=== PATIENT | female | born 1955 | race Caucasian/White ===

== ENCOUNTER 2018-11-03 13:49 | Observation (INO) ==
[2018-11-03 14:42] LABS: Basophils # 0.1 10*3/uL (0.0-0.2); Basophils % 0.8 % (0.0-0.8); Eosinophils # 0.4 10*3/uL (0.0-0.87); Eosinophils % 4.9 % (0.00-10.9); Hematocrit 39.8 VOL% (35.7-47.0); Hemoglobin 12.8 GM/DL (12.0-16.0); Immature Granulocytes % 0.4 %; Immature Granulocytes Absolute 0.03 #; Lymphocytes # 1.4 10*3/uL (1.4-4.0); Lymphocytes % 19.1 % (21.3-54.2); Mean Corpuscular HGB Conc 32.2 GM/DL (32-36); Mean Corpuscular Volume 90.7 FL (87-102); Mean Platelet Volume 9.6 FL (9.6-12.0); Monocytes % 8.9 % (1.7-12.7); Neutrophils % 65.9 % (38.7-73.9); Platelet Count 296 T/CUMM (130-400); Red Blood Count 4.39 MC/CUMM (3.8-5.5); Red Cell Distribution Width 12.7 % (9.3-17.3); White Blood Count 7.5 T/CUMM (4-12)
[2018-11-03 14:54] LABS: INR 0.9; PT Patient Result 10.2 SECS; Partial Thromboplastin Time 23.8 SECS (0-40)
[2018-11-03 15:12] LABS: Alanine Aminotransferase 27 U/L (13-56); Albumin 3.6 G/DL (3.4-5.0); Alkaline Phosphatase 97 U/L (45-117); Aspartate Amino Transferase 22 U/L (0-37); Bilirubin,Total < 0.39 MG/DL (0.2-1.0); Blood Urea Nitrogen 19 MG/DL (7-18); Calcium 8.9 MG/DL (8.5-10.1); Glucose 108 MG/DL (74-106); Osmolality,Calculated 283.3 MOS/KG (273-304); Total Protein 7.4 G/DL (6.4-8.3); Troponin I < 0.015 NG/ML (0.00-0.045)
[2018-11-03] MEDS ORDERED: NITROGLYCERIN SL 0.4 MG TABLET SL STA (15:48)
[2018-11-03] MEDS ORDERED: MORPHINE 4 MG/1 ML VIAL IV STA (15:48)
[2018-11-03] MEDS ORDERED: ASPIRIN 325 MG TABLET PO STA (15:48)
[2018-11-03] MEDS ORDERED: ONDANSETRON 4 MG/2 ML VIAL ONE (16:12)
[2018-11-03] MEDS ORDERED: ONDANSETRON 4 MG/2 ML VIAL IV PRN (16:27)
[2018-11-03] MEDS ORDERED: POTASSIUM CHLORIDE 20 MEQ TABLET PO PRN (16:27)
[2018-11-03] MEDS ORDERED: ALUM/MAG/SIMETH/LIDO VISC 1:1 30 ML BOTTLE PO PRN (16:27)
[2018-11-03] MEDS ORDERED: MORPHINE 4 MG/1 ML VIAL IV PRN (16:27)
[2018-11-03] MEDS: SODIUM CHLORIDE 0.45% 1,000 ML IV SCH (18:33)
[2018-11-03] MEDS: ENOXAPARIN 80 MG/0.8 ML SYRINGE SUBCUT SCH (18:34)
[2018-11-03] MEDS: ATORVASTATIN 10 MG TABLET PO SCH (20:47)
[2018-11-04 00:48] LABS: Basophils # 0.1 10*3/uL (0.0-0.2); Basophils % 1.4 % (0.0-0.8); Eosinophils # 0.4 10*3/uL (0.0-0.87); Eosinophils % 6.7 % (0.00-10.9); Hemoglobin 10.9 GM/DL (12.0-16.0); Immature Granulocytes % 0.3 %; Immature Granulocytes Absolute 0.02 #; Lymphocytes # 1.9 10*3/uL (1.4-4.0); Lymphocytes % 32.2 % (21.3-54.2); Mean Corpuscular HGB Conc 32.1 GM/DL (32-36); Mean Corpuscular Volume 92.1 FL (87-102); Mean Platelet Volume 9.8 FL (9.6-12.0); Monocytes % 11.6 % (1.7-12.7); Neutrophils % 47.8 % (38.7-73.9); Platelet Count 245 T/CUMM (130-400); Red Blood Count 3.69 MC/CUMM (3.8-5.5); Red Cell Distribution Width 12.8 % (9.3-17.3); White Blood Count 5.8 T/CUMM (4-12)
[2018-11-04 01:14] LABS: Troponin I < 0.015 NG/ML (0.00-0.045)
[2018-11-04 01:18] LABS: Calcium 8.7 MG/DL (8.5-10.1); Osmolality,Calculated 283.3 MOS/KG (273-304); Risk Ratio 3.42; Thyroid Stimulating Hormone 5.03 uIU/ml (0.358-3.74); VLDL CHOLESTEROL 32.6 MG/DL
[2018-11-04] MEDS: SODIUM CHLORIDE 0.45% 1,000 ML IV SCH ×3 (02:02→21:03)
[2018-11-04] MEDS: ENOXAPARIN 80 MG/0.8 ML SYRINGE SUBCUT SCH ×2 (05:30→21:01)
[2018-11-04] MEDS: LOSARTAN 50 MG TABLET PO SCH (10:08)
[2018-11-04] MEDS: SERTRALINE 50 MG TABLET PO SCH (10:09)
[2018-11-04] MEDS: MELOXICAM 7.5 MG TABLET PO SCH (10:09)
[2018-11-04] MEDS: amLODIPine 5 MG TABLET PO SCH (10:09)
[2018-11-04] MEDS: PANTOPRAZOLE 40 MG TABLET PO SCH (10:09)
[2018-11-04] MEDS: ASPIRIN EC 81 MG TABLET PO SCH (13:05)
[2018-11-04] MEDS ORDERED: POTASSIUM CHLORIDE RIDER 10 MEQ in PREMIX 1 EACH IV PRN (17:12)
[2018-11-04] MEDS ORDERED: MAGNESIUM SULF RIDER 2 GM in PREMIX 1 EACH IV PRN (17:12)
[2018-11-04] MEDS: ATORVASTATIN 10 MG TABLET PO SCH (21:02)
[2018-11-05] MEDS: SODIUM CHLORIDE 0.45% 1,000 ML IV SCH ×3 (01:01→22:11)
[2018-11-05 05:30] LABS: Basophils # 0.1 10*3/uL (0.0-0.2); Eosinophils # 0.4 10*3/uL (0.0-0.87); Eosinophils % 7.4 % (0.00-10.9); Hematocrit 35.9 VOL% (35.7-47.0); Hemoglobin 11.6 GM/DL (12.0-16.0); Immature Granulocytes % 0.2 %; Immature Granulocytes Absolute 0.01 #; Lymphocytes # 1.5 10*3/uL (1.4-4.0); Lymphocytes % 30.1 % (21.3-54.2); Mean Corpuscular HGB Conc 32.3 GM/DL (32-36); Mean Corpuscular Volume 90.4 FL (87-102); Mean Platelet Volume 10.3 FL (9.6-12.0); Monocytes % 11.3 % (1.7-12.7); Platelet Count 256 T/CUMM (130-400); Red Blood Count 3.97 MC/CUMM (3.8-5.5); Red Cell Distribution Width 12.5 % (9.3-17.3); White Blood Count 4.9 T/CUMM (4-12)
[2018-11-05] MEDS: ENOXAPARIN 80 MG/0.8 ML SYRINGE SUBCUT SCH (05:57)
[2018-11-05 06:00] LABS: Calcium 8.7 MG/DL (8.5-10.1); Osmolality,Calculated 279.3 MOS/KG (273-304)
[2018-11-05] MEDS: PANTOPRAZOLE 40 MG TABLET PO SCH (10:04)
[2018-11-05] MEDS: MELOXICAM 7.5 MG TABLET PO SCH (10:04)
[2018-11-05] MEDS: amLODIPine 5 MG TABLET PO SCH (10:04)
[2018-11-05] MEDS: ASPIRIN EC 81 MG TABLET PO SCH (10:04)
[2018-11-05] MEDS: LOSARTAN 50 MG TABLET PO SCH (10:04)
[2018-11-05] MEDS: SERTRALINE 50 MG TABLET PO SCH (10:05)
[2018-11-05] MEDS ORDERED: DIAZEPAM 5 MG TABLET PO ONE (12:00)
[2018-11-05] MEDS ORDERED: diphenhydrAMINE CAP 25 MG CAPSULE PO ONE (12:00)
[2018-11-05] MEDS ORDERED: amLODIPine 10 MG TABLET PO SCH (12:39)
[2018-11-05] MEDS ORDERED: SODIUM BICARBONATE 2.4 MEQ/5 ML VIAL ONE (14:28)
[2018-11-05] MEDS ORDERED: LIDOCAINE 1% 20 ML VIAL ONE (14:28)
[2018-11-05] MEDS ORDERED: HEPARIN/NACL 0.9% 2 UNITS/ML 1,000 ML IV ONE (14:28)
[2018-11-05] MEDS ORDERED: fentaNYL 100 MCG/2 ML VIAL ONE (14:45)
[2018-11-05] MEDS ORDERED: MIDAZOLAM 2 MG/2 ML VIAL ONE ×2 (14:45→14:52)
[2018-11-05] MEDS ORDERED: ACETAMINOPHEN/CODEINE 300-30 MG TABLET PO PRN (15:44)
[2018-11-05] MEDS ORDERED: ACETAMINOPHEN 325 MG TABLET PO PRN (15:44)
[2018-11-05] MEDS: ATORVASTATIN 10 MG TABLET PO SCH (20:59)
[2018-11-05] MEDS ORDERED: ENOXAPARIN 40 MG/0.4 ML SYRINGE SUBCUT SCH (21:00)
[2018-11-06] MEDS: SODIUM CHLORIDE 0.45% 1,000 ML IV SCH ×2 (02:59→06:24)
[2018-11-06 04:47] LABS: Basophils # 0.1 10*3/uL (0.0-0.2); Basophils % 1.1 % (0.0-0.8); Eosinophils # 0.4 10*3/uL (0.0-0.87); Eosinophils % 5.9 % (0.00-10.9); Hematocrit 36.2 VOL% (35.7-47.0); Hemoglobin 11.8 GM/DL (12.0-16.0); Immature Granulocytes % 0.3 %; Immature Granulocytes Absolute 0.02 #; Lymphocytes # 1.4 10*3/uL (1.4-4.0); Lymphocytes % 22.8 % (21.3-54.2); Mean Corpuscular HGB Conc 32.6 GM/DL (32-36); Mean Corpuscular Volume 90.3 FL (87-102); Mean Platelet Volume 10.1 FL (9.6-12.0); Monocytes % 11.2 % (1.7-12.7); Neutrophils % 58.7 % (38.7-73.9); Platelet Count 257 T/CUMM (130-400); Red Blood Count 4.01 MC/CUMM (3.8-5.5); Red Cell Distribution Width 12.4 % (9.3-17.3); White Blood Count 6.2 T/CUMM (4-12)
[2018-11-06 05:04] LABS: Calcium 8.6 MG/DL (8.5-10.1)
[2018-11-06 08:45] VITALS: BP 147/67
[2018-11-06] MEDS: LOSARTAN 50 MG TABLET PO SCH (09:03)
[2018-11-06] MEDS: MELOXICAM 7.5 MG TABLET PO SCH (09:03)
[2018-11-06] MEDS: SERTRALINE 50 MG TABLET PO SCH (09:03)
[2018-11-06] MEDS: PANTOPRAZOLE 40 MG TABLET PO SCH (09:03)
[2018-11-06] MEDS: ASPIRIN EC 81 MG TABLET PO SCH (09:03)
== END 2018-11-06 10:29 | disposition home or self-care (01) ==
LOC: N.ED 13:49 → N.EDINP 13:49 → SUATTDRO 16:27 → N.TELES 16:49
PROVIDERS: ADMIT Internal Medicine; ATTEND Internal Medicine
PROC: CLCCHCL (ICD-10-PCS; 2018-11-05 13:15)